=== PATIENT | male | born 1995 | race Caucasian/White ===

== ENCOUNTER 2017-06-15 19:27 | Emergency (ER) | payer OTHER ==
[~2017-06-15] VITALS: Ht 182.9 cm; Wt 81.8 kg
[2017-06-15] MEDS ORDERED: CYCLOBENZAPRIN7.5 MG PO (20:21)
[2017-06-15 21:00] VITALS: BP 129/55
== END 2017-06-15 21:00 | disposition home or self-care (01) ==
LOC: ED 19:27
DX: S29.012A Strain of muscle and tendon of back wall of thorax, initial encounter (principal); M62.830 Muscle spasm of back; X50.0XXA Overexertion from strenuous movement or load, initial encounter
CPT/HCPCS: J1885